=== PATIENT | male | born 1980 | race Caucasian/White ===

== ENCOUNTER 2016-05-08 14:51 | Emergency (ER) | payer MEDICAID, OTHER ==
[~2016-05-08] VITALS: Ht 170.2 cm; Wt 110.0 kg
[~2016-05-08 14:51] MED LIST: COZA100T PO; GLIP10TA6 PO; GLUCTAB PO; LOSA100T PO; SITA100 PO
[2016-05-08 14:53] VITALS: BP 140/90; PULSE 90; RESP 16; TEMP 98; O2SAT 98
[2016-05-08] MEDS ORDERED: AMOX875T PO (16:37)
--- NOTE | 2016-05-08 16:41 | PD ---
HPI Chief Complaint: ENT Complaint Time Seen by Provider: 16:38 Travel History International Travel<30 days: No Contact w/Intl Traveler<30days: No Traveled to known affect area: No History of Present Illness HPI 35-year-old male presents to the emergency room for evaluation of right ear pain for the past day. Patient has had a cold for the past 4 days. Had a fever of 102 at onset of cold but no fever today. Patient reports severe pain radiating into his head. It caused him to cry this morning. He took a baby aspirin without relief. Also apply eardrops without relief. Denies drainage or decreased hearing. PFSH Past Medical History High Cholesterol: Yes Coronary Artery Disease: Yes Diabetes: Yes Hypertension: Yes Seizures: Yes Past Surgical History Cardiac Surgery: Yes (open heart as a child) Social History Alcohol Use: Yes (occ) Tobacco Use: No Substance Use: No Allergies-Medications (Allergen,Severity, Reaction): Coded Allergies: No Known Allergies (Unverified , 05/08/16) Reported Meds & Prescriptions Reported Meds & Active Scripts Active Amoxicillin 875 Mg Tab 875 Mg PO BID 10 Days Review of Systems Except as stated in HPI: all other systems reviewed are Neg Physical Exam Narrative GENERAL: Well-nourished, well-developed male in no acute distress. Afebrile. Ambulatory. SKIN: Warm and dry. HEAD: Normocephalic. EYES: No scleral icterus. No injection or drainage. EARS: Bilateral pinnae and external canals appear within normal limits. Bilateral tympanic membranes are extremely erythematous and dull. No perforation. Data Data Last Documented VS Vital Signs Date Time Temp Pulse Resp B/P Pulse Ox O2 Delivery O2 Flow Rate FiO2 05/08/16 14:53 98.0 90 16 140/90 98 Orders Acetamin-Hydrocod 325-5 Mg ([place] 5-325 (05/08/16 16:45) MDM Medical Decision Making Medical Screen Exam Complete: Yes Emergency Medical Condition: Yes Medical Record Reviewed: Yes Differential Diagnosis Otitis media versus otitis externa versus upper respiratory infection Narrative Course 35-year-old male presents to the emergency room for evaluation of right ear pain since this morning. Patient has had an upper respiratory infection for the past 4 days. He is afebrile and well-appearing in the emergency room. Vital signs stable. Physical exam shows marked erythema and dullness of the right tympanic membrane and to a lesser degree the left tympanic membrane. This is evident of bilateral otitis media. Patient given Lortab in the emergency room and discharged with prescription for amoxicillin. Told to follow up with PCP or return for worsening symptoms. He understands and agrees to plan. Diagnosis Primary Impression: Bilateral otitis media with effusion Referrals: Primary Care Physician Patient Instructions: General Instructions, Otitis Media (ED) Departure Forms: Tests/Procedures, Work Release Enter return to work date: May 09, 2016 Additional Instructions: Rest and drink plenty of fluids. Take amoxicillin as directed, as needed for until gone. Take ibuprofen with food as directed, as needed for pain. Follow-up with a primary care physician. Return to the emergency room for worsening symptoms. Med/Other Pt SpecificInfo: Prescription(s) given Scripts Amoxicillin 875 Mg Vqq120 Mg PO BID 10 Days Ref 0 Prov:Charmaine Vale MD 05/08/16 Disposition: 01 DISCHARGE HOME Condition: Stable Roxana Pressley May 08, 2016 16:41
[2016-05-08] MEDS ORDERED: ACETAMINOPHEN/HYDROcodone 325 MG/5 MG TAB PO ONE (16:45)
== END 2016-05-08 17:04 | disposition home or self-care (01) ==
LOC: NEPB 14:51
DX: H65.93 Unspecified nonsuppurative otitis media, bilateral (principal); E78.00 Pure hypercholesterolemia, unspecified; I25.10 Atherosclerotic heart disease of native coronary artery without angina pectoris; E11.9 Type 2 diabetes mellitus without complications; I10 Essential (primary) hypertension; R56.9 Unspecified convulsions
CPT/HCPCS: 99283

== ENCOUNTER 2016-06-21 17:55 | Emergency (ER) | payer MEDICAID, OTHER ==
[~2016-06-21] VITALS: Ht 170.2 cm; Wt 110.0 kg
[~2016-06-21 17:55] MED LIST changes: +AMOX875T PO; -COZA100T PO; -GLIP10TA6 PO; -GLUCTAB PO; -LOSA100T PO; -SITA100 PO
[2016-06-21 17:57] VITALS: BP 161/91; PULSE 98; RESP 12; TEMP 97.6; O2SAT 100
[2016-06-21] MEDS ORDERED: SITA25 PO (20:01)
[2016-06-21] MEDS ORDERED: FENO1TAB46 PO (20:01)
[2016-06-21] MEDS ORDERED: LANTUS2P SQ (20:01)
[2016-06-21] MEDS ORDERED: LOSA25TA PO (20:01)
[2016-06-21] MEDS ORDERED: METF500T PO (20:01)
[2016-06-21 20:18] VITALS: BP 141/81; PULSE 91; RESP 16; O2SAT 98
[2016-06-21] MEDS ORDERED: SODIUM CHLOR 0.9% 1000 ML INJ 1,000 ML IV ONE (20:30)
--- NOTE | 2016-06-21 20:39 | PD ---
HPI Chief Complaint: Neuro Symptoms/ Deficits Time Seen by Provider: 20:28 Travel History International Travel<30 days: No Contact w/Intl Traveler<30days: No Traveled to known affect area: No History of Present Illness HPI 35yo M with PMH of insulin dependent DM presents to the ED with c/o inability to raise to left eyebrow and corner of his left lip for 2 days. Pt is also not able to completely close his left eye lid for 4 days. Pt had recent URI. Denies any fever, chest pain, sob, n/v, abdominal pain, focal weakness or numbness in extremities. Pt states he takes his metformin at home but has not taken lantus for 2 months. PFSH Past Medical History High Cholesterol: Yes Coronary Artery Disease: Yes Diabetes: Yes Patient Takes Glucophage: Yes Diminished Hearing: No Hypertension: Yes Seizures: Yes Tetanus Vaccination: Unknown Influenza Vaccination: No Past Surgical History Cardiac Surgery: Yes (open heart as a child) Social History Alcohol Use: Yes (occ) Tobacco Use: No Substance Use: No Allergies-Medications (Allergen,Severity, Reaction): Coded Allergies: No Known Allergies (Unverified , 06/21/16) Reported Meds & Prescriptions Reported Meds & Active Scripts Active Blood Glucose Monitoring W/Device (Device) 1 Kit Kit 1 Kit .ROUTE DIRECTED Blood Glucose Test Strips 1 [place] 1 Ea .ROUTE DIRECTED Cipro (Ciprofloxacin HCl) 500 Mg Tab 500 Mg PO BID 5 Days Artificial Tears Opth Drops (Zdyxffpw-Yrlbehhwxgyn-Szsyehda Opth Drops) 0.2-0.2- 1% Drops 1-2 Drop LEFT EYE PRN PRN 7 Days Wh Petrolatum-Mineral Oil Opth Ointment (Artificial Tear Opth Ointment) 0.1-0.1 % Oint 1 Applic LEFT EYE DAILY 7 Days Acyclovir 400 Mg Tab 400 Mg PO TID 7 Days Prednisone 20 Mg Tab 60 Mg PO DAILY 7 Days Take 3 20mg tablet of prednisone daily for 7 days. Reported Losartan (Losartan Potassium) 25 Mg Tab 12.5 Mg PO DAILY Fenofibrate 40 Mg Tab 40 Mg PO DAILY Lantus Inj (Insulin Glargine) 1,000 Unit/10 Ml Vial 1 Units SQ HS Januvia (Sitagliptin Phosphate) 25 Mg Tab 25 Mg PO DAILY Metformin (Metformin HCl) 500 Mg Tab 500 Mg PO BIDPC With meals Review of Systems Except as stated in HPI: all other systems reviewed are Neg Physical Exam Narrative GENERAL: 35yo M not in distress. SKIN: Warm and dry. HEAD: Atraumatic. Normocephalic. EYES: Pupils equal and round at 4mm bilaterally. EOMI. No scleral icterus. No injection or drainage. ENT: No nasal bleeding or discharge. Mucous membranes pink and moist. NECK: Trachea midline. No JVD. CARDIOVASCULAR: Regular rate and rhythm. No murmur appreciated. RESPIRATORY: No accessory muscle use. Clear to auscultation. Breath sounds equal bilaterally. GASTROINTESTINAL: Abdomen soft, non-tender, nondistended. Hepatic and splenic margins not palpable. MUSCULOSKELETAL: No obvious deformities. No clubbing. No cyanosis. No edema. NEUROLOGICAL: Awake and alert. CNVII defect. Unable to fully raise left eyebrow and left lips. Muscle strength 5/5 in all extremities. Sensation equal bilaterally. Normal speech. PSYCHIATRIC: Appropriate mood and affect; insight and judgment normal. Data Data Last Documented VS Vital Signs Date Time Temp Pulse Resp B/P Pulse Ox O2 Delivery O2 Flow Rate FiO2 06/21/16 20:18 91 16 141/81 98 Room Air 06/21/16 17:57 97.6 Orders Complete Blood Count With Diff (06/21/16 20:29) Basic Metabolic Panel (Bmp) (06/21/16 20:29) Beta Hydroxybutyrate (Acetone) (06/21/16 20:29) Sodium Chlor 0.9% 1000 Ml Inj (Ns 1000 M (06/21/16 20:30) Urinalysis - C+S If Indicated (06/21/16 20:29) Resp Blood Gas Venous (06/21/16 ) Acyclovir (Zovirax) (06/21/16 20:42) Prednisone (Deltasone) (06/21/16 21:00) Urine Culture (06/21/16 20:45) Blood Gas Venous (Vbg) (06/21/16 09:00) Insulin Human Regular Inj (Novolin R Inj (06/21/16 21:30) Blood Glucose (06/21/16 21:51) Labs Laboratory Tests Test 06/21/16 06/21/16 09:00 20:45 Blood Gas Puncture Site LINE Blood Gas Patient Temperature 98.6 Venous Blood pH 7.35 Venous Blood Partial Pressure 50 mmHg CO2 Venous Blood Partial Pressure 26 mmHg O2 Venous Blood HCO3 27 mmol/L Venous Blood Oxygen Saturation 47 % Venous Blood Oxygen Content 9.0 Vol % Venous Blood Base Excess 1.6 mmol/L Blood Gas Inspired Oxygen 21 % White Blood Count 9.1 TH/MM3 Red Blood Count 5.36 MIL/MM3 Hemoglobin 15.3 GM/DL Hematocrit 42.8 % Mean Corpuscular Volume 80.0 FL Mean Corpuscular Hemoglobin 28.5 PG Mean Corpuscular Hemoglobin 35.6 % Concent Red Cell Distribution Width 13.5 % Platelet Count 247 TH/MM3 Mean Platelet Volume 9.6 FL Neutrophils (%) (Auto) 62.0 % Lymphocytes (%) (Auto) 27.5 % Monocytes (%) (Auto) 6.7 % Eosinophils (%) (Auto) 3.1 % Basophils (%) (Auto) 0.7 % Neutrophils # (Auto) 5.6 TH/MM3 Lymphocytes # (Auto) 2.5 TH/MM3 Monocytes # (Auto) 0.6 TH/MM3 Eosinophils # (Auto) 0.3 TH/MM3 Basophils # (Auto) 0.1 TH/MM3 CBC Comment DIFF FINAL Differential Comment Urine Color YELLOW Urine Turbidity CLEAR Urine pH 6.0 Urine Specific [place] 1.036 Urine Protein NEG mg/dL Urine Glucose (UA) 1000 mg/dL Urine Ketones NEG mg/dL Urine Occult Blood NEG Urine Nitrite NEG Urine Bilirubin NEG Urine Urobilinogen LESS THAN 2.0 MG/DL Urine Leukocyte Esterase LARGE Urine RBC 6 /hpf Urine WBC 16 /hpf Urine Squamous Epithelial 1 /hpf Cells Microscopic Urinalysis Comment CULTURE INDICATED Sodium Level 136 MEQ/L Potassium Level 3.9 MEQ/L Chloride Level 99 MEQ/L Carbon Dioxide Level 29.5 MEQ/L Anion Gap 8 MEQ/L Blood Urea Nitrogen 11 MG/DL Creatinine 0.89 MG/DL Estimat Glomerular Filtration 98 ML/MIN Rate Random Glucose 306 MG/DL Calcium Level 9.3 MG/DL B-Hydroxybutyrate 0.12 MMOL/L [facility] Medical Decision Making Medical Screen Exam Complete: Yes Emergency Medical Condition: Yes Differential Diagnosis Humphrey's palsy vs. r/o DKA Narrative Course 35yo M with symptoms consistent with humphrey's palsy for 2 days. Blood glucose is 284. Given that pt is noncompliance with his lantus, will draw labs to r/o DKA. Will give IVF NS. Labs reviewed, no leukocytosis. Glucose 306. CO2 normal at 29.5. No increased anion gap. b-Hydroxybutyrate normal. pH normal at 7.35. UA showed large leukocyte with WBC 16. Will given few days of ciprofloxacin. Pt given acyclovir, prednisone, NS IVF and regular insulin 5 units. Pt states he has lantus at home but does not have a glucometer so that is why he has not been taking his lantus. Return precautions given. Repeat blood glucose is 220. Diagnosis Primary Impression: Humphrey's palsy Patient Instructions: General Instructions Departure Forms: Tests/Procedures Additional Instructions: Please return to the ED if symptoms worsen. Please follow up with your PMD in 3 -7 days. Med/Other Pt SpecificInfo: Prescription(s) given Scripts Blood Glucose Monitoring W/Device 1 Kit Kit #1 KIT .ROUTE DIRECTED Ref 0 Prov:Denisha Green DO 06/21/16 Blood Glucose Test Strips 1 Mara Mar[place] #90 EA .ROUTE DIRECTED Ref 0 Prov:Denisha Green DO 06/21/16 Ciprofloxacin (Cipro)500 Mg Sva470 Mg PO BID 5 Days Ref 0 Prov:Denisha Green DO 06/21/16 Bgkvgsmh-Ipztvxhapilh-Mdcggjrx Opth Drops (Artificial Tears Opth Drops)0.2-0.2-1 % Drops1-2 Drop LEFT EYE PRN PRN ([place]) 7 Days Prov:Denisha Green DO 06/21/16 Artificial Tear Opth Ointment (Wh Petrolatum-Mineral Oil Opth Ointment)0.1-0.1% Oint1 Applic LEFT EYE DAILY 7 Days Prov:Denisha Green DO 06/21/16 Acyclovir 400 Mg Cnv131 Mg PO TID 7 Days Ref 0 Prov:Denisha Green DO 06/21/16 Prednisone 20 Mg Tab60 Mg PO DAILY 7 Days Ref 0 Take 3 20mg tablet of prednisone daily for 7 days. Prov:Denisha Green DO 06/21/16 Disposition: 01 DISCHARGE HOME Condition: Stable Denisha Green DO Jun 21, 2016 20:39
[2016-06-21] MEDS ORDERED: ACYCLOVIR 200 MG CAP PO STA (20:42)
[2016-06-21] MEDS ORDERED: predniSONE 1 MG TAB PO ONE (20:45)
[2016-06-21 20:53] LABS: AUTOMATED NEUTROPHIL # 5.6 TH/MM3 (1.8-7.7); BASOPHIL # 0.1 TH/MM3 (0-0.2); BASOPHIL % 0.7 % (0.0-2.0); EOSINOPHIL # 0.3 TH/MM3 (0-0.4); EOSINOPHIL % 3.1 % (0.0-4.0); HEMATOCRIT 42.8 % (39.0-51.0); HEMO FLAGS DIFF FINAL; LYMPH % 27.5 % (9.0-44.0); LYMPHOCYTE # 2.5 TH/MM3 (1.0-4.8); MEAN CORPUSCULAR HEMOGLOBIN 28.5 PG (27.0-34.0); MEAN CORPUSCULAR HGB CONC 35.6 % (32.0-36.0); MONO % 6.7 % (0.0-8.0); PLATELET COUNT 247 TH/MM3 (150-450); RED BLOOD COUNT 5.36 MIL/MM3 (4.50-5.90); RED CELL DISTRIBUTION WIDTH 13.5 % (11.6-17.2); WHITE BLOOD COUNT 9.1 TH/MM3 (4.0-11.0)
[2016-06-21 20:57] LABS: BLOOD, URINE NEG (NEG); COMMENT (UR) CULTURE INDICATED; CULTURE IF INDICATED CULTURE INDICATED; GLUCOSE,URINE 1000 mg/dL (NEG); KETONE, URINE NEG (NEG); NITRITE,URINE NEG (NEG); SQUAMOUS EPITHELIAL CELL URINE 1 /hpf (0-5); URINE COLOR YELLOW (YELLW/STRAW)
[2016-06-21] MEDS ORDERED: predniSONE 20 MG TAB PO ONE (21:00)
[2016-06-21 21:11] LABS: BLOOD GAS VENOUS BASE EXCESS 1.6 mmol/L (-2-2); BLOOD GAS VENOUS HCO3 27 mmol/L (22-26); BLOOD GAS VENOUS O2 HGB SAT 47 % (70-76); BLOOD GAS VENOUS PCO2 50 mmHg (44-48); BLOOD GAS VENOUS PO2 26 mmHg (35-40); BLOOD GAS VENOUS pH 7.35 (7.360-7.400); TEMP CORR TO 98.6
[2016-06-21 21:12] LABS: CRITICAL VALUE YES
[2016-06-21 21:13] LABS: DRAW SITE LINE; FIO2 21 %; STAT YES
[2016-06-21 21:21] LABS: BICARBONATE 29.5 MEQ/L (21.0-32.0); POTASSIUM 3.9 MEQ/L (3.5-5.1)
[2016-06-21 21:22] LABS: BETA-HYDROXYBUTYRATE 0.12 MMOL/L (0.00-0.39)
[2016-06-21] MEDS ORDERED: INSULIN HUMAN REGULAR 1,000 UNITS/10 ML VIAL SQ ONE (21:30)
[2016-06-21] MEDS ORDERED: [UNRECOGNIZED DRUG - OTHER] LEFT EYE (21:49)
[2016-06-21] MEDS ORDERED: PRED20 PO (21:49)
[2016-06-21] MEDS ORDERED: ACYC400T PO (21:49)
[2016-06-21] MEDS ORDERED: ARTIDRO3 LEFT EYE (21:49)
[2016-06-21] MEDS ORDERED: CIPR-9 PO (21:51)
[2016-06-21] MEDS ORDERED: BLOOD GLUCOSE T1 TES (22:04)
[2016-06-21] MEDS ORDERED: BLOOD GLUCOSE M1 KIT (22:04)
== END 2016-06-22 00:58 | disposition home or self-care (01) ==
LOC: NEPA 17:55
DX: G51.0 Bell's palsy (principal); E11.9 Type 2 diabetes mellitus without complications; I10 Essential (primary) hypertension; R82.71 Bacteriuria; Z79.4 Long term (current) use of insulin; Z79.84 Long term (current) use of oral hypoglycemic drugs
CPT/HCPCS: 80048; 81001; 82010; 82805; 85025; 87086; 96360; 96372; 99284; J1815; J7030; J7512